=== PATIENT | male | born 1935 | race Hispanic/Latino ===

== ENCOUNTER 2020-08-13 11:04 | Emergency (ER) | payer MEDICARE ==
[~2020-08-13] VITALS: Ht 167.6 cm; Wt 83.9 kg
[2020-08-13 11:28] LABS: BASOPHILS % 0.1 % (0.0-1.0); HEMATOCRIT 37.6 % (38.2-49.6); HEMOGLOBIN 13.1 g/dL (14.0-18.0); LYMPHOCYTES # (AUTO) 0.5 (1.0-3.2); LYMPHOCYTES % 6.3 % (18.0-39.1); MEAN CORPUSCULAR HEMOGLOBIN 30.3 pg (28-32); MEAN CORPUSCULAR HGB CONC 34.8 g/dL (31-35); MEAN CORPUSCULAR VOLUME 86.8 fL (81-99); MONOCYTES # (AUTO) 0.3 (0.2-0.8); NEUTROPHILS # (AUTO) 6.4 (2.1-6.9); NEUTROPHILS % 89.3 % (38.7-80.0); PLATELET COUNT 142 x10e3/uL (140-360); RED BLOOD COUNT 4.33 x10e6/uL (4.3-5.7); RED CELL DISTRIBUTION WIDTH 12.9 % (11.7-14.4)
[2020-08-13 11:53] LABS: ALANINE AMINOTRANSFERASE 95 IU/L (0-55); ALBUMIN 3.1 g/dL (3.5-5.0); ALBUMIN/GLOBULIN RATIO 0.9 (0.8-2.0); ALKALINE PHOSPHATASE 63 IU/L (40-150); ANION GAP 13.4 mmol/L (8-16); BLOOD UREA NITROGEN 22 mg/dL (7-26); BUN/CREATININE RATIO 20 (6-25); CALCIUM 8.7 mg/dL (8.4-10.2); CARBON DIOXIDE 21 mmol/L (22-29); CHLORIDE 103 mmol/L (98-107); CREATINE KINASE 221 IU/L (30-200); EST GLOMERULAR FILTRATION RATE > 60 ML/MIN (60-); GLUCOSE 153 mg/dL (74-118); POTASSIUM 3.4 mmol/L (3.5-5.1); SODIUM 134 mmol/L (136-145)
[2020-08-13] MEDS ORDERED: AZITHROMYCIN250 MG PO (12:50)
[2020-08-13 13:03] VITALS: BP 129/67
== END 2020-08-13 13:03 | disposition home or self-care (01) ==
LOC: ER 11:07
DX: U07.1 COVID-19 (principal); R50.9 Fever, unspecified; R05 Cough
CPT/HCPCS: 36415; 71045; 80053; 82550; 82553; 83880; 84484; 85025; 87040; 93005; 99283; U0002

== ENCOUNTER 2020-08-15 00:03 | Emergency (ER) | payer MEDICARE ==
[~2020-08-15] VITALS: Ht 167.6 cm; Wt 83.9 kg
[~2020-08-15 00:03] MED LIST: AZITHROMYCIN250 MG PO
[2020-08-15] MEDS ORDERED: KETOROLAC TROMETHAMINE 30 MG/ML VIAL ONE (00:20)
[2020-08-15] MEDS ORDERED: KETOROLAC TROMETHAMINE 30 MG/ML VIAL IV ONE (00:30)
[2020-08-15] MEDS ORDERED: SODIUM CHLORIDE 0.9% 1000ML 1,000 ML IV SCH (01:15)
[2020-08-15 01:45] LABS: BASOPHILS % 0.1 % (0.0-1.0); HEMATOCRIT 35.1 % (38.2-49.6); HEMOGLOBIN 12.6 g/dL (14.0-18.0); LYMPHOCYTES # (AUTO) 0.3 (1.0-3.2); LYMPHOCYTES % 3.8 % (18.0-39.1); MEAN CORPUSCULAR HEMOGLOBIN 30.5 pg (28-32); MEAN CORPUSCULAR HGB CONC 35.9 g/dL (31-35); MONOCYTES # (AUTO) 0.2 (0.2-0.8); MONOCYTES % 2.2 % (4.4-11.3); NEUTROPHILS # (AUTO) 6.5 (2.1-6.9); NEUTROPHILS % 93.6 % (38.7-80.0); PLATELET COUNT 135 x10e3/uL (140-360); RED BLOOD COUNT 4.13 x10e6/uL (4.3-5.7); RED CELL DISTRIBUTION WIDTH 12.6 % (11.7-14.4)
[2020-08-15 02:02] LABS: ALANINE AMINOTRANSFERASE 60 IU/L (0-55); ALBUMIN 2.7 g/dL (3.5-5.0); ALBUMIN/GLOBULIN RATIO 0.8 (0.8-2.0); ALKALINE PHOSPHATASE 60 IU/L (40-150); ANION GAP 11.4 mmol/L (8-16); BLOOD UREA NITROGEN 19 mg/dL (7-26); BUN/CREATININE RATIO 20 (6-25); CALCIUM 8.8 mg/dL (8.4-10.2); CARBON DIOXIDE 22 mmol/L (22-29); CHLORIDE 101 mmol/L (98-107); CREATININE, SERUM 0.93 mg/dL (0.72-1.25); EST GLOMERULAR FILTRATION RATE > 60 ML/MIN (60-); GLUCOSE 170 mg/dL (74-118); POTASSIUM 3.4 mmol/L (3.5-5.1); SODIUM 131 mmol/L (136-145)
[2020-08-15 03:29] VITALS: BP 108/71
== END 2020-08-15 03:33 | disposition home or self-care (01) ==
LOC: ER 00:13
DX: U07.1 COVID-19 (principal); R50.9 Fever, unspecified
CPT/HCPCS: 36415; 71045; 80053; 85025; 93005; 99284; J1885; J7030